=== PATIENT | female | born 1950 | race Caucasian/White ===

== ENCOUNTER → 2020-08-21 11:56 | Outpatient (CLI) | payer MEDICARE, SELFPAY ==
--- NOTE | ~2020-08-21 | DEXA_ITS ---
Bone Density Report Name: Rosario Kimble Age: 69 Sex: Female Ethnicity: White Date of : 1950 Indication: postmenopausal; screening for osteoporosis; height loss; Referring Provider: BARBARA KOTHARI Study: Bone densitometry was performed. Exam Date: August 21, 2020 Accession number: [id number] Bone Density: Region BMD T-score Z-score Classification AP Spine (L1-L4) 0.965 -0.7 1.4 Normal Femoral Neck (Left) 0.739 -1.0 0.8 Normal Total Hip (Left) 1.059 1.0 2.5 Normal Femoral Neck (Right) 0.707 -1.3 0.5 Osteopenia Total Hip (Right) 1.001 0.5 2.0 Normal Total Hip Mean 1.030 0.8 2.3 Normal World Health Organization criteria for BMD impression classify patients as: Normal (T-score at or above -1.0), Osteopenia (T-score between -1.0 and -2.5), or Osteoporosis (T-score at or below -2.5). 10-year Fracture Risk(1): Major Osteoporotic Fracture 9.5% Hip Fracture 1.3% Reported Risk Factors: [place] (), Neck BMD=0.707, BMI=24.1 (1) FRAX(R) Version 3.08. Fracture probability calculated for an untreated patient. Fracture probability may be lower if the patient has received treatment. Previous Exams: Region Exam Age BMD T-score BMD Change BMD Change Date g/cm2 vs Baseline vs Previous AP Spine(L1-L4) 08/21/2020 69 0.965 -0.7 -0.165* -0.023* 05/25/2016 65 0.989 -0.5 -0.142* -0.056* 05/25/2013 62 1.044 0.0 -0.086* 0.005 07/08/2010 59 1.039 -0.1 -0.092* -0.092* 09/17/2005 54 1.131 0.8 Total Hip(Left) 08/21/2020 69 1.059 1.0 -0.113* -0.020 05/25/2016 65 1.079 1.1 -0.093* 0.103* 05/25/2013 62 0.976 0.3 -0.196* -0.119* 07/08/2010 59 1.095 1.3 -0.077* -0.077* 09/17/2005 54 1.172 1.9 Total Hip(Right) 08/21/2020 69 1.001 0.5 -0.146* -0.047* 05/25/2016 65 1.048 0.9 -0.099* 0.052* 05/25/2013 62 0.996 0.4 -0.151* -0.067* 07/08/2010 59 1.063 1.0 -0.084* -0.084* 09/17/2005 54 1.147 1.7 *Denotes significance at 95% confidence level, LSC for AP Spine = 0.022 g/cm2, LSC for Total Hip = 0.027 g/cm2 Clinical Information Provided by Patient: Has used the following medications: Vitamin D, Calcium Patient maximum height was 66 Menopause Age: 54 Does not regularly consume dairy products Drinks caffeinated beverages Ons
== END ==
PROVIDERS: PCP Family Medicine; Visit Provider Obstetrics & Gynecology Gynecology
DX: Z78.0 Asymptomatic menopausal state (principal); M85.851 Other specified disorders of bone density and structure, right thigh
CPT/HCPCS: 77080

== ENCOUNTER 2021-06-01 09:28 | Outpatient (CLI) | payer MEDICARE, SELFPAY ==
--- NOTE | ~2021-06-01 | US_ITS ---
EXAMINATION: US abdomen complete EXAM DATE: 06/01/2021 10:35 INDICATION: Secondary thrombocytopenia. TECHNIQUE: Multiple grayscale and Doppler images of the complete abdomen were obtained (by a technolo gist who performed the scan) and subsequently reviewed. There is no prior study for comparison. FINDINGS: The abdominal aorta is normal in caliber. Visualized portion IVC is patent. The pancreatic head a nd body are normal in appearance. The pancreatic tail is not visualized. The liver has normal echogenicity and contour. There are no focal liver lesions identified. There is no evidence of intrahepatic biliary duct dilation. Portal venous flow was seen in the hepatopedal , normal direction and has normal Doppler waveform. Common bile duct measures 6 mm, which is normal. The gallbladder wall is normal in thickness, with ex pected amount of distention. No sonographic evidence of pericholecystic fluid. There is no cholelit hiases. Technologist performing exam reports patient did not demonstrate sonographic Chavez's sign. Please note that this sign is less reliable in patients who have received pain medication. Right kidney: There is normal contour and echogenicity. It measures 9.1 x 4.7 x 4.0 centimeters. T here are no focal renal lesions identified. There is no hydronephrosis. Left kidney: There is normal contour and echogenicity. It measures 9.3 x 4.3 x 4.4 centimeters. Th ere are no focal renal lesions identified. There is no hydronephrosis. The spleen measures 12.3 centimeters and is morphologically normal. IMPRESSION: 1. Unremarkable complete abdominal ultrasound exam. Reviewed, dictated and finalized at location A. [facility]UD[facility] MANAGER
== END 2021-06-01 09:29 | disposition home or self-care (01) ==
PROVIDERS: PCP Family Medicine; Visit Provider Internal Medicine Hematology & Oncology
DX: D69.59 Other secondary thrombocytopenia (principal)
CPT/HCPCS: 76700

== ENCOUNTER 2022-01-08 02:05 | Day surgery (SDC) | payer MEDICARE, SELFPAY ==
[2021-12-31 09:50] VITALS: BMI 24.2
--- NOTE | 2022-01-07 20:51 | PM.HPGS ---
History of Present Illness History of Present Illness Consent: Risks, benefits, and alternatives have been discussed and questions answered. Patient agrees to proceed with procedure. Chief complaint: hx of colon polyps Narrative: Rosario Kimble is a 71 year old female who has had an adenoma removed 7 years ago in [place], [place]. She is now referred for colon cancer sceening Review of Systems Review of Systems: All systems reviewed & are unremarkable except as noted in HPI and below PMFSH Family History Family History Sibling Family history of diabetes mellitus in first degree relative Family history of type 2 diabetes mellitus Social History Social History Smoking status: Never smoker Second hand tobacco smoke exposure: No Alcohol intake: former Substance use: never Substance use type: does not use Living arrangements: alone Gender identity (if verbalized by the patient): Female Sexual Orientation (if Verbalized by the Patient): Straight or Heterosexual Spiritual care concerns: No Meds Home Medications and Allergies Home Medications Medication Instructions Recorded Confirmed Type glipizide 5 mg tablet, extended 5 mg PO DAILY #100 tabs 10/27/21 12/31/21 Rx release 24 hr metformin 1,000 mg tablet 1,000 mg PO BID #200 tabs 10/27/21 12/31/21 Rx rosuvastatin 5 mg tablet (Crestor) 5 mg PO DAILY #100 tabs 10/27/21 12/31/21 Rx sodium sul 1.479 gram-potas ch See Rx Instructions PO PER PKG DIR 11/26/21 12/31/21 Rx 0.188 gram-magnes sul 0.225 gram #24 tabs tablet (Sutab) ergocalciferol (vitamin D2) 1,250 1,250 mcg PO MONTHLY 12/31/21 12/31/21 History mcg (50,000 unit) capsule Allergies Allergy/AdvReac Type Severity Reaction Status Date / Time Penicillins Allergy Intermediate Rash Verified 01/08/22 08:14 Exam Const: General: alert Orientation/consciousness: patient oriented x3 Resp: Auscultation: clear to auscultation bilaterally Cardio: Rhythm: regular rhythm GI: GI Palp: Yes Soft to palpation and No Tenderness to palpation present (GI) Neuro: General: patient oriented x3 Assessment and Plan Assessment and plan (1) Colon cancer screening: Code(s): Z12.11 - Encounter for screening for malignant neoplasm of colon Status: Acute Assessment and Plan: Colonoscopy with possible biopsy or polypectomy or cautery or injection of substances.
[2022-01-08 08:15] VITALS: BP 156/79; PULSE 88; RESP 20; TEMP 36.1; O2SAT 99
[2022-01-08] MEDS: LACTATED RINGERS 1,000 ML 150 ML IV CONT (08:26)
[2022-01-08 08:33] LABS: Glucose Point of Care 120 mg/dl (65-105)
--- NOTE | 2022-01-08 08:52 | P.PNAN_ITS ---
Anes - Initial Pre Proc Eval Procedure: Operation Date: 01/08/22 09:00 Proposed Procedures p Screening Colonoscopy - Antonio Sarkar MD Date/Time: 01/08/22 08:52 Surgeon: Antonio Sarkar MD Pre Op Diagnosis: hx of colon polyps Patient Data Age: 71 Gender: F Height: 1.65 m Weight: 62 kg Last Vital Signs Temp 97 F L 01/08/22 08:15 Pulse 88 01/08/22 08:15 Resp 20 01/08/22 08:15 BP 156/79 H 01/08/22 08:15 Pulse Ox 99 01/08/22 08:15 O2 Del Method Room Air 01/08/22 08:15 Allergies Allergy/AdvReac Type Severity Reaction Status Date / Time Penicillins Allergy Intermediate Rash Verified 01/08/22 08:14 Home Medications Medication Instructions Recorded Confirmed Type glipizide 5 mg tablet, extended 5 mg PO DAILY #100 tabs 10/27/21 12/31/21 Rx release 24 hr metformin 1,000 mg tablet 1,000 mg PO BID #200 tabs 10/27/21 12/31/21 Rx rosuvastatin 5 mg tablet (Crestor) 5 mg PO DAILY #100 tabs 10/27/21 12/31/21 Rx sodium sul 1.479 gram-potas ch See Rx Instructions PO PER PKG DIR 11/26/21 12/31/21 Rx 0.188 gram-magnes sul 0.225 gram #24 tabs tablet (Sutab) ergocalciferol (vitamin D2) 1,250 1,250 mcg PO MONTHLY 12/31/21 12/31/21 History mcg (50,000 unit) capsule Laboratory Tests 01/08/22 08:30 POC Capillary Glucose 120 mg/dl H mg/dl (65-105) Patient hx anesthesia problems: none Family hx anesthesia problems: none Results Review: All pre-operative results and documents have been reviewed as part of the pre- operative evaluation. [facility] Family History Family History Sibling Family history of diabetes mellitus in first degree relative Family history of type 2 diabetes mellitus Social History Social History Smoking status: Never smoker Second hand tobacco smoke exposure: No Alcohol intake: former Substance use: never Substance use type: does not use Living arrangements: alone Gender identity (if verbalized by the patient): Female Sexual Orientation (if Verbalized by the Patient): Straight or Heterosexual Spiritual care concerns: No Anes - Eval Final PreProcedure Day of Procedure 01/08/22 08:52 Patient weight: normal Heart: regular rate and rhythm Lungs: clear to auscultation Airway: Mallampati scale class II Neurological: alert and oriented Last oral intake: >/= 8 hours ASA classification: II Emergent: no Anesthetic plan: proceed Anesthesia type and monitoring: general GIVS and standard monitoring Results Review: All pre-operative results and documents have been reviewed as part of the pre- operative evaluation. Informed Consent: The patient's anesthetic plan and its attendant risks and benefits were discussed with the patient/family/POA. Questions were solicited and answers provided to the satisfaction of the patient/family/POA.
[2022-01-08] MEDS: SIMETHICONE ORAL SUSPENSION 20 MG/0.3 ML 30 ML BOTTLE 0.6 ML IRRIGATION (09:07)
[2022-01-08 09:18] VITALS: BP 101/61; PULSE 75; RESP 20; O2SAT 95
[2022-01-08 09:28] VITALS: BP 103/66; PULSE 79; RESP 20; O2SAT 99
[2022-01-08 09:38] VITALS: BP 110/74; PULSE 71; RESP 20; O2SAT 99
== END 2022-01-08 09:48 | disposition home or self-care (01) ==
PROVIDERS: PCP Family Medicine; Visit Provider Internal Medicine Gastroenterology
PROC: 0DJD8ZZ Inspection of Lower Intestinal Tract, Via Natural or Artificial Opening Endoscopic (ICD-10-PCS; CPT 45378; principal; 2022-01-08 09:00)
DX: Z12.11 Encounter for screening for malignant neoplasm of colon (principal); K57.30 Diverticulosis of large intestine without perforation or abscess without bleeding; Z86.010 Personal history of colon polyps; Z79.84 Long term (current) use of oral hypoglycemic drugs
CPT/HCPCS: G0105; 82948; J2704; J7120

== ENCOUNTER → 2022-01-26 15:13 | Outpatient (REF) | payer MEDICARE, SELFPAY | LOC: ANHLAB 15:13 | PROVIDERS: PCP Family Medicine; Visit Provider Nurse Practitioner | DX: C44.1192 Basal cell carcinoma of skin of left lower eyelid, including canthus (principal) | CPT/HCPCS: 88305 ==

== ENCOUNTER 2022-03-22 11:31 | Outpatient (NON) | payer MEDICARE, SELFPAY | END 2022-03-22 11:32 | disposition home or self-care (01) | LOC: ANHLAB 11:31 | PROVIDERS: PCP Family Medicine; Visit Provider Nurse Practitioner | DX: C44.1192 Basal cell carcinoma of skin of left lower eyelid, including canthus (principal) | CPT/HCPCS: 88305; 88331 ==

== ENCOUNTER 2024-05-23 13:02 | Outpatient (CLI) | payer MEDICARE, SELFPAY ==
--- NOTE | ~2024-05-23 | DEXA_ITS ---
Bone Density Report Name: ELOY LEAL Age: 73 Sex: Female Ethnicity: White Date of : 1950 Indication: postmenopausal; screening for osteoporosis; Referring Provider: JULIANO ORLANDO Study: Bone densitometry was performed. Exam Date: May 23, 2024 Accession number: [id number] Bone Density: Region BMD T-score Z-score Classification AP Spine(L1-L4) 1.001 -0.4 1.9 Normal Femoral Neck (Left) 0.747 -0.9 1.1 Normal Total Hip (Left) 0.878 -0.5 1.2 Normal Femoral Neck (Right) 0.664 -1.7 0.4 Osteopenia Total Hip (Right) 0.822 -1.0 0.8 Normal Total Hip Mean 0.850 -0.8 1.0 Normal World Health Organization criteria for BMD impression classify patients as: Normal (T-score at or above -1.0), Osteopenia (T-score between -1.0 and -2.5), or Osteoporosis (T-score at or below -2.5). 10-year Fracture Risk(1): Major Osteoporotic Fracture 11% Hip Fracture 2.3% Reported Risk Factors: [place] (), Neck BMD=0.664, BMI=22.7 (1) FRAX(R) Version 3.08. Fracture probability calculated for an untreated patient. Fracture probability may be lower if the patient has received treatment. Clinical Information Provided by Patient: Has used the following medications: Vitamin D Patient maximum height was 65.8 Menopause Age: 54 Does not regularly consume dairy products Onset of menses at age 10 Number of children 0 Impression: The patient has low bone mass, based on the Right Femoral Neck T-score. The patient has an estimated ten-year risk of hip fracture of 2.3% and an estimated ten-year risk of major fracture of 11%, based on the WHO FRAX algorithm. Discussion: BONE DENSITY IS LOW AT ONE OR MORE SKELETAL SITES. This patient's lowest T-score is low at one or more skeletal sites. It meets the World Health Organization's (WHO) criteria for ?low bone mass? (T-score between -1.0 and -2.5). The patient's 10-year risk of fracture as calculated by FRAX is less than the threshold where pharmacological therapy is recommended by the National Osteoporosis Foundation (NOF). However, all treatment decisions require clinical judgment and consideration of individual patient factors, including patient preferences, comorbidities, previous drug use, risk factors not captured in the FRAX model (e.g., frailty, falls, vitamin D deficiency, increased bone turnover, interval significant decline in bone density) and possible under or overestimation of fracture risk by FRAX. The patient should follow a healthful lifestyle (good nutrition with adequate calcium and vitamin D, and appropriate weight-bearing exercise). Follow-Up: Consider repeating this study in 2 to 3 years to reassess this patient's status, or sooner if there is some new clinical indication. Reported by: CHEMO on 05/23/2024 1:54:00 PM. Reviewed, dictated and finalized at location AJonathan [facility]
== END 2024-05-23 13:03 | disposition home or self-care (01) ==
LOC: ANHIMG 13:03
PROVIDERS: PCP Family Medicine; Visit Provider Family Medicine
DX: Z78.0 Asymptomatic menopausal state (principal); M85.851 Other specified disorders of bone density and structure, right thigh
CPT/HCPCS: 77080